=== PATIENT | female | born 1945 | race Caucasian/White ===

== ENCOUNTER 2017-10-28 08:54 | Outpatient (CLI) | payer MEDICARE, BC | END 2017-10-28 08:55 | disposition home or self-care (01) | LOC: BICCT 08:54 | PROVIDERS: ATTEND Internal Medicine Gastroenterology | DX: K43.9 Ventral hernia without obstruction or gangrene (principal); R19.7 Diarrhea, unspecified; K76.0 Fatty (change of) liver, not elsewhere classified; D25.9 Leiomyoma of uterus, unspecified | CPT/HCPCS: 74177 ==

== ENCOUNTER 2022-07-01 10:43 | Outpatient (CLI) | payer MEDICARE, BC | END 2022-07-01 10:44 | disposition home or self-care (01) | LOC: BICCT 10:43 | PROVIDERS: ATTEND Internal Medicine Hematology & Oncology | DX: C54.1 Malignant neoplasm of endometrium (principal); C85.19 Unspecified B-cell lymphoma, extranodal and solid organ sites; R91.8 Other nonspecific abnormal finding of lung field | CPT/HCPCS: 71260; 74177; 82565 ==

== ENCOUNTER 2023-07-02 09:32 | Outpatient (CLI) | payer MEDICARE | END 2023-07-02 09:33 | disposition home or self-care (01) | LOC: BICCT 09:32 | PROVIDERS: ATTEND Internal Medicine Hematology & Oncology | DX: C83.39 Diffuse large B-cell lymphoma, extranodal and solid organ sites (principal); R91.1 Solitary pulmonary nodule | CPT/HCPCS: 71260; 74177; 82565 ==